=== PATIENT | female | born 1960 | race Caucasian/White ===

== ENCOUNTER 2019-12-05 16:30 | Emergency (ER) | payer BC, SELFPAY ==
[2019-12-05 16:35] VITALS: BP 157/85; PULSE 114; RESP 20; TEMP 36.7; O2SAT 98
--- NOTE | 2019-12-05 16:37 | ED.GENADUL_ITS ---
Discharge Plan Disposition Patient Disposition: HOME Condition: Good Discharge Details Clinical Impression: Contusion Primary Care Provider: Allie Kaur ED Provider: Peggy Iyer Home Meds and New Rx's Prescriptions: Continued sertraline 100 mg tablet 100 mg PO DAILY Qty: 90 RF: 3 Discharge Instructions Instructions: Contusion in Adults (ED) Additional Instructions: Ice to affected area 20 minutes 4-5 times daily Elevate area above the level of your heart as much as possible throughout the day Can use acetaminophen and/or ibuprofen as directed for pain Referrals: Allie Kaur, BUSINESS MANAGEMENT INTERN [Primary Care Provider] - (As needed) Medical Decision Making Patient with an isolated right lower extremity injury moving furniture where she struck her anterior right lower extremity. She is ambulatory and did finish moving the furniture prior to arrival. She reports she came in because she googled her injury and read that there would possibly be a concern of her bleeding to . I did discuss x-ray with her, which there is less likely chance of fracture where she is freely ambulatory. I also discussed blood work to evaluate coags, platelets etc which she also declines as she reports no known bleeding issues. She is safe for discharge to home and will be discharged with conservative management including ice and elevation and [id number] pain medication as needed. She is in agreement with this plan. HPI General Mode of arrival: ambulatory . Date/Time Provider Initiated Documentation: 12/05/19 16:32 . Limitations to Documentation: no limitations . Information obtained by: patient . HPI Narrative: right lower extremity pain and swelling. Patient bumped the anterior portion of her right lower extremity while moving furniture. Has a hematoma approximately size of a baseball to the anterior portion of her mid right lower extremity consistent with her injury. There is no numbness tingling or pain distally or proximally. She is ambulatory with no difficulties. There was no other injuries. She denies any bleeding issues is not taking any blood thinners Related Data Home Medications Medication Instructions Recorded Confirmed sertraline 100 mg tablet 100 mg PO DAILY #90 tab 05/28/19 12/05/19 Previous Rx's Medication Instructions Recorded sertraline 100 mg tablet 100 mg PO DAILY #90 tab 05/28/19 Allergies Allergy/AdvReac Type Severity Reaction Status Date / Time adhesive AdvReac Intermediate Skin Rash Unverified 12/05/19 16:38 codeine AdvReac Intermediate Nausea Unverified 12/05/19 16:38 oxycodone HCl [From Percocet] AdvReac Intermediate Nausea Unverified 12/05/19 16:38 General THAI: 4 Review of Systems All systems reviewed & are unremarkable except as noted in HPI and below Constitutional Constitutional: Denies frequent falls Musculoskeletal Comments: Hematoma to mid right lower extremity Integumentary/Breasts Skin/Breast: Denies lesions, Denies rash and Reports other (Hematoma/ecchymosis) Neurologic Neurologic: Denies frequent falls and Denies lack of coordination Hematologic/Lymphatic Hematologic/Lymphatic: Denies easy bleeding and Denies easy bruising PFSH Medical History (Updated 12/05/19 @ 16:55 by Peggy Iyer NP) Anxiety Eczema Insomnia Surgical History (Updated 05/28/19 @ 11:03 by Allie Kaur NP) Carpal tunnel syndrome, bilateral upper limbs Family History (Updated 03/29/19 @ 09:15 by Tera Braun) Mother , age 79 Lung cancer Father , age 82 No problems noted. Sister No problems noted. Sister No problems noted. Sister No problems noted. Brother No problems noted. Social History (Updated 05/28/19 @ 11:00 by Allie Kaur NP) Smoking/Tobacco Use Status: Never Alcohol Intake: current Drug use: Never Substance use type: does not use Caregiver/Support person: No Household members: spouse Housing: apartment Do you need help understanding health information?: Never Pets and animals: Yes Pets and animals: dog(s) Sexually active: No Do you think of yourself as: straight/heterosexual Current gender identity: female What is your relationship status?: How often do you talk on the phone with friends or family?: decline to answer How often do you get together with friends or relatives?: decline to answer How often do you attend latter day or scientology services?: decline to answer Do you belong to any clubs or organized social groups?: decline to answer Panel score (0-1 are the most socially isolated patients): 1 What type of physical activity do you participate in: irregular exercise Katia/Moravian: No preference Special katia needs: No Seatbelt use: always Drive intox or ride w/intox transportation driver: No Do you feel safe at home: Yes Do you feel safe in your relationship?: Yes Exam Const General: cooperative, healthy appearing, comfortable and anxious Nutritional Appearance: average body habitus Orientation: alert, awake and oriented x3 HENMT Head: normal to inspection, normocephalic and atraumatic Extrem General: normal to inspection, full ROM, no calf tenderness bilaterally and no pedal edema Right lower extremity: lower leg Details: no edema and ecchymosis (Mid anterior right lower extremity approximately size of a baseball)
== END 2019-12-05 17:10 | disposition home or self-care (01) ==
PROVIDERS: Emergency Provider Nurse Practitioner Acute Care; PCP Nurse Practitioner
DX: S80.11XA Contusion of right lower leg, initial encounter (principal); W22.03XA Walked into furniture, initial encounter
CPT/HCPCS: 99283

== ENCOUNTER 2021-08-14 01:57 | Outpatient (CLI) | payer BC, SELFPAY ==
[2021-08-14 08:15] LABS: Hemoglobin A1C 5.3 % (<5.7)
[2021-08-14 09:30] LABS: Anion Gap 10.3 mmol/L (3-11); BUN 19 mg/dL (7-18); CO2 28.7 mmol/L (21.0-32.0); CREATININE 0.8 mg/dL (0.55-1.02); Calcium 9.4 mg/dL (8.5-10.1); Calculated LDL 192 mg/dL (<100); Chloride 101 mmol/L (98-107); Cholesterol 288 mg/dL (<200); Glucose 104 mg/dL (74-106); HDL Cholesterol 62 mg/dL (40-60); Potassium 4.3 mmol/L (3.5-5.1); Sodium 140 mmol/L (136-145); TSH (W/Ref FT4) 1.94 uIU/mL (0.36-3.74); Triglyceride 170 mg/dL (<150)
== END 2021-08-14 01:58 | disposition home or self-care (01) ==
LOC: LBO 01:57
PROVIDERS: PCP Nurse Practitioner; Visit Provider Nurse Practitioner
DX: M62.831 Muscle spasm of calf (principal); M62.838 Other muscle spasm; F41.9 Anxiety disorder, unspecified; N95.1 Menopausal and female climacteric states; Z13.6 Encounter for screening for cardiovascular disorders; Z13.1 Encounter for screening for diabetes mellitus
CPT/HCPCS: 36415; 80048; 80061; 83036; 84443

== ENCOUNTER 2022-11-30 15:15 | Emergency (ER) | payer BC, SELFPAY ==
--- NOTE | 2022-11-30 | DI.CT_ITS ---
Exam(s) CT TEMPORAL BONE WO/W EXAM: CT TEMPORAL BONE WO/W CLINICAL HISTORY: pain, redness swelling pinna/mastoid. TECHNIQUE: Imaging Protocol: Axial computed tomography images with coronal and sagittal reformatted images were created and reviewed. CONTRAST MATERIAL: Intravenous: Omnipaque 350 Contrast volume:100 mL COMPARISON: No exams were available for comparison FINDINGS: Right Temporal Bone: The cochlea, vestibule, vestibular and cochlear aqueduct are normal. The facial nerve canal is well m aintained. The semicircular canals are unremarkable. There is no evidence of dehiscence. The internal auditory canal is within normal limits. The scutum and tegmen are within normal limits. There is no evidence of otosclerosis.No exams were available for comparison The external auditory canal and mastoid air cells are normal. The carotid canal and jugular foramen a re within normal limits. The temporomandibular joint is unremarkable. Left Temporal Bone: The cochlea, vestibule, vestibular and cochlear aqueduct are normal. The facial nerve canal is well m aintained. The semicircular canals are unremarkable. There is no evidence of dehiscence. The interna l auditory canal is within normal limits. The scutum and tegmen are within normal limits. There is no evidence of otosclerosis. The external auditory canal and mastoid air cells are normal. The carotid canal and jugular foramen a re within normal limits. The temporomandibular joint is unremarkable. Soft tissues: The soft tissues around the right ear are heterogeneous and thickened. The right ear c artilage appears mildly thickened. No fluid collection is seen to suggest an abscess. IMPRESSION: Right otitis externa without abscess. RADIATION DOSE DELIVERED: 565.3mGy.cm Total DLP DATA REPOSITORY: All CT scans at this facility are submitted to the National Radiology Data Registry (NRDR) Dose Index Registry (DIR) with the [employer] (A[employer]). RADIATION OPTIMIZATION: All CT scans at this facility use at least one of these dose optimization te chniques: automated exposure control; mA and/or kV adjustment per patient size (includes targeted exa ms where dose is matched to clinical indication); or iterative reconstruction.
[2022-11-30 15:28] VITALS: BP 134/74; PULSE 89; RESP 20; TEMP 36.8; O2SAT 99
[2022-11-30] MEDS: ACETAMINOPHEN 1,000 MG/100 ML BTL 400 MG IVPB (16:26)
[2022-11-30] MEDS: Ondansetron 4 MG/2 ML VIAL IVP (16:27)
[2022-11-30] MEDS: Ketorolac 15 MG/ML VIAL IVP (16:27)
--- NOTE | 2022-11-30 16:56 | ED.GENADUL_ITS ---
Discharge Plan Disposition Patient Disposition: Home Condition: Stable Discharge Details Clinical Impression: Pinna cellulitis Primary Care Provider: Cat Lynn ED Provider: Peggy Iyer Home Meds and New Rx's Prescriptions: New amoxicillin-pot clavulanate 875-125 mg tablet 1 tab PO BID Qty: 14 0RF ondansetron 4 mg tablet,disintegrating 4 mg PO Q8H PRN (Reason: nausea and vomiting) Qty: 10 0RF Continued sertraline 100 mg tablet 100 mg PO DAILY Qty: 90 4RF sertraline 50 mg tablet 50 mg PO DAILY Qty: 90 4RF Discharge Instructions Instructions: Cellulitis (ED) Additional Instructions: Stop taking ciprofloxacin Start taking Augmentin 1 tab twice daily Continue ibuprofen 600 mg 4 times daily with food if needed for pain can add acetaminophen 650 mg for breakthrough pain if needed Referrals: Cat Lynn, [employer]OL[employer] DRIVER [Primary Care Provider] - Discharge Data Discharge Date/Time-TO BE ENTERED AT DEPARTURE: 11/30/22 19:03 Medical Decision Making Patient presents with increasing right ear pain swelling and redness after being started on Cipro for otitis externa. She is reporting pain over her mastoid and radiating down anterior cervical spine. Medical Records Medical records reviewed: Yes I reviewed the patient's medical records. Imaging Data Radiologic Study: Imaging: CT Scan Radiologist's impression: PROCEDURE INFORMATION: Exam: CT Temporal Bones Without and With Contrast. Exam date and time: 11/30/2022 17:09 Age: 62 years old Clinical indication: Patient HX: Pain, redness swelling pinna/mastoid TECHNIQUE: Imaging protocol: Computed tomography of the temporal bones without and with contrast. COMPARISON: No relevant prior studies available. FINDINGS: The right auditory soft tissues appear thickened and heterogeneous, with the right ear cartilage appearing thickened. The cartilaginous components of the right external auditory canal appear thickened. No abscess.? There is no significant right mastoid effusion, middle ear effusion, or osseous erosion.? Inner ear structures are within normal limits. Left external, middle and internal auditory structures within normal limits. No significant soft tissue disease, effusion or abscess. IMPRESSION: Right otitis externa without abscess. Dictated and Authenticated by: Edita Bledsoe MD. Ordering:WILEY Woods MD [facility] General Mode of arrival: ambulatory . Date/Time Provider Initiated Documentation: 11/30/22 15:17 . Limitations to Documentation: no limitations . Information obtained by: patient . HPI Narrative: This is a 62-year-old female patient no significant past medical history recently traveled from [place] was seen IN route back home at the emergency department in [place] for redness swelling and pain of her right pinna. She was started on ciprofloxacin which she took 1 dose on but never had her prescription filled till yesterday so took 1 dose yesterday but due to GI upset she has not taken any further doses. She states ibuprofen was helping for the pain but due to her GI upset from the Cipro she has not been able to take any of that. She denies any fever or chills. She is reporting increased pain posterior over mastoid now down into her neck. There is edema and erythema to the internal ear canal. She denies any changes in her hearing or drainage. Related Data Home Medications Medication Instructions Recorded Confirmed sertraline 100 mg tablet 100 mg PO DAILY #90 tabs 08/31/21 11/30/22 sertraline 50 mg tablet 50 mg PO DAILY #90 tabs 08/31/21 11/30/22 amoxicillin 875 mg-potassium 1 tab PO BID #14 tabs 11/30/22 clavulanate 125 mg tablet ondansetron 4 mg disintegrating 4 mg PO Q8H PRN nausea and 11/30/22 tablet vomiting #10 tabs Previous Rx's Medication Instructions Recorded sertraline 100 mg tablet 100 mg PO DAILY #90 tabs 08/31/21 sertraline 50 mg tablet 50 mg PO DAILY #90 tabs 08/31/21 amoxicillin 875 mg-potassium 1 tab PO BID #14 tabs 11/30/22 clavulanate 125 mg tablet ondansetron 4 mg disintegrating 4 mg PO Q8H PRN nausea and 11/30/22 tablet vomiting #10 tabs Allergies Allergy/AdvReac Type Severity Reaction Status Date / Time adhesive AdvReac Intermediate Skin Rash Unverified 11/30/22 15:32 codeine AdvReac Intermediate Nausea Unverified 11/30/22 15:32 oxycodone HCl [From Percocet] AdvReac Intermediate Nausea Unverified 11/30/22 15:32 General Stated Complaint: GenMedical THAI: 4 Review of Systems All systems reviewed & are unremarkable except as noted in HPI and below PFSH All Active Problems (Updated 11/30/22 @ 18:27 by Peggy Iyer NP) Pinna cellulitis (Acute) Hyperlipidemia (Acute) Left ankle pain (Acute) Muscle spasms of neck (Acute) Chronic pruritus (Acute) Hot flashes due to menopause (Acute) Anxiety (Chronic) Insomnia (Acute) Eczema (Acute) Surgical History (Updated 05/28/19 @ 11:03 by Allie Kaur NP) Carpal tunnel syndrome, bilateral upper limbs Family History (Updated 03/29/19 @ 09:15 by Tera Braun) Mother , age 79 Lung cancer Father , age 82 No problems noted. Sister No problems noted. Sister No problems noted. Sister No problems noted. Brother No problems noted. Social History (Updated 05/28/19 @ 11:00 by Allie Kaur NP) Smoking/Tobacco Use Status: Never Smoking risk assessment performed?: Yes Alcohol Intake: current Drug use: Never Substance use type: does not use Caregiver/Support person: No Household members: spouse Housing: apartment Do you need help understanding health information?: Never Pets and animals: Yes Pets and animals: dog(s) Sexually active: No Do you think of yourself as: straight/heterosexual Current gender identity: female What is your relationship status?: How often do you talk on the phone with friends or family?: decline to answer How often do you get together with friends or relatives?: decline to answer How often do you attend religious or christianity services?: decline to answer Do you belong to any clubs or organized social groups?: decline to answer Panel score (0-1 are the most socially isolated patients): 1 What type of physical activity do you participate in: irregular exercise Katia/Samaritan: No preference Special katia needs: No Seatbelt use: always Drive intox or ride w/intox rickshaw driver: No Do you feel safe at home: Yes Do you feel safe in your relationship?: Yes Exam Const General: cooperative, healthy appearing and comfortable Nutritional Appearance: average body habitus Orientation: alert, awake and oriented x3 HENMT Head: normocephalic Ears: mastoids normal on the right tender and external ear abnormal Outer ear/TM images: 1. Erythema and swelling Mouth: oral mucosae normal Resp Effort & Inspection: normal respiratory effort Cardio Rate: regular rate Rhythm: regular rhythm Neuro General: patient alert, patient awake and patient oriented x3 Cognition: normal cognition Speech: speech normal Extrem General: normal to inspection and full ROM Course Vital Signs Vital signs: Vital Signs Temperature 36.8 C 11/30/22 15:28 Pulse 89 11/30/22 15:28 Respiratory Rate 20 11/30/22 15:28 Blood Pressure 134/74 11/30/22 15:28 Pulse Oximetry 99 11/30/22 15:28 Temperature 36.8 C 11/30/22 15:28 Temperature Source Oral 11/30/22 15:28 Pulse 89 11/30/22 15:28 Respiratory Rate 20 11/30/22 15:28 Respiratory Effort Normal 11/30/22 15:33 Respiratory Depth Normal 11/30/22 15:33 Respiratory Pattern Normal 11/30/22 15:33 Blood Pressure 134/74 11/30/22 15:28 Blood Pressure Position Sitting 11/30/22 15:28 Pulse Oximetry 99 11/30/22 15:28 Oxygen Delivery Method Room Air 11/30/22 15:28 Oxygen Flow Rate 0 11/30/22 15:28
[2022-11-30] MEDS: Omnipaque 350 MG/ML 100 ML BTL IJ (17:27)
[2022-11-30] MEDS: Normal Saline - Diluent 50 ML VIAL IJ (17:28)
--- NOTE | 2022-11-30 18:04 | DI.VRAD_ITS ---
PROCEDURE INFORMATION: Exam: CT Temporal Bones Without and With Contrast. Exam date and time: 11/30/2022 17:09 Age: 62 years old Clinical indication: Patient HX: Pain, redness swelling pinna/mastoid TECHNIQUE: Imaging protocol: Computed tomography of the temporal bones without and with contrast. COMPARISON: No relevant prior studies available. FINDINGS: The right auditory soft tissues appear thickened and heterogeneous, with the right ear cartilage appearing thickened. The cartilaginous components of the right external auditory canal appear thickened. No abscess. There is no significant right mastoid effusion, middle ear effusion, or osseous erosion. Inner ear structures are within normal limits. Left external, middle and internal auditory structures within normal limits. No significant soft tissue disease, effusion or abscess. IMPRESSION: Right otitis externa without abscess. Dictated and Authenticated by: Edita Bledsoe MD. Ordering:WILEY Woods MD
[2022-11-30] MEDS: PIPERACILLIN/TAZO 4.5 GM in Normal Saline 100 ML IVPB (18:23)
[2022-11-30] MEDS: Amox. 875/Clav. 125, 2 TABS/BTL 1 TAB PO (18:57)
[2022-11-30] MEDS: Ondansetron O.D.T. 4 MG TABEF, 3 TABS/BTL PO (18:58)
== END 2022-11-30 19:03 | disposition home or self-care (01) ==
PROVIDERS: Emergency Provider Nurse Practitioner Acute Care; PCP Nurse Practitioner Family
DX: H60.11 Cellulitis of right external ear (principal); H60.91 Unspecified otitis externa, right ear
CPT/HCPCS: 36415; 96365; 96367; 96375; 99285; 70482; 99284; J0131; J1885; J2405; J2543; J3490